=== PATIENT | male | born 1995 | race Two or more races ===

== ENCOUNTER 2019-04-05 12:52 | Emergency (ER) | payer OTHER ==
[2019-04-05 12:59] VITALS: RESP 18
--- NOTE | 2019-04-05 14:29 | ED ---
Abdominal Pain HPI - General Chief Complaint: Abdominal Pain Stated Complaint: hernia Time Seen by Provider: 04/05/19 13:29 Source: patient, RN notes reviewed Mode of arrival: ambulatory Limitations: no limitations - History of Present Illness Initial Comments: 23-year-old male presents emergency Department with chief complaint of left- sided groin pain. Patient states has been on and off it started improving but then it has worsened. Patient recent saw PCP who ordered an ultrasound. Patient states she is scheduled for this when he had increasing pain over the weekend working two jobs, patient states that he does a large amount of lifting twisting bending. He states is at really aggravate his symptoms. Patient had a leave work yesterday. Review of Systems ROS Statement: Those systems with pertinent positive or pertinent negative responses have been documented in the HPI. ROS Other: All systems not noted in ROS Statement are negative. Past Medical History Additional Past Medical History / Comment(s): hernia, seasonal allergies Past Surgical History: No Surgical Hx Reported Past Psychological History: No Psychological Hx Reported Smoking Status: Current every day smoker Past Alcohol Use History: Occasional Past Drug Use History: None Reported General Exam Limitations: no limitations General appearance: alert, in no apparent distress Head exam: Present: atraumatic, normocephalic, normal inspection Respiratory exam: Present: normal lung sounds bilaterally. Absent: respiratory distress, wheezes, rales, rhonchi, stridor Cardiovascular Exam: Present: regular rate (Patient was not tachycardic on exam), normal rhythm, normal heart sounds. Absent: systolic murmur, diastolic murmur, rubs, gallop, clicks GI/Abdominal exam: Present: soft, normal bowel sounds, hernia (Left inguinal). Absent: distended, tenderness, guarding, rebound, rigid exam: Present: normal inspection. Absent: testicular tenderness, urethral discharge, scrotal swelling Back exam: Absent: CVA tenderness (R), CVA tenderness (L) Course Vital Signs 04/05/19 12:57 Temperature 98.0 F Pulse Rate 113 H Respiratory 18 Rate Blood Pressure 106/72 O2 Sat by Pulse 98 Oximetry Medical Decision Making - Medical Decision Making 23-year-old male presented for left groin pain. Patient's had worsening symptoms which may be underlying small inguinal hernia versus enlarged lymph nodes. Patient will be referred to surgeon for further evaluation. Disposition Clinical Impression: Left groin pain Disposition: HOME SELF-CARE Condition: Stable Instructions (If sedation given, give patient instructions): Inguinal Hernia (ED) Additional Instructions: Please return to the Emergency Department if symptoms worsen or any other concerns. Is patient prescribed a controlled substance at d/c from ED?: No Referrals: Jose Enrique Tamayo MD [Primary Care Provider] - 1-2 days Manuel Soto MD [STAFF PHYSICIAN] - 1-2 days Time of Disposition: 14:51
--- NOTE | 2019-04-05 14:32 | US ---
EXAMINATION TYPE: US groin LT DATE OF EXAM: 04/05/2019 COMPARISON: NONE CLINICAL HISTORY: Pain, swelling. Pain left groin for 1 year, getting worse FINDINGS/TECHNIQUE: Targeted ultrasound was performed of the left groin in the area the patient's robert n. Grayscale and color imaging was performed. Within the left groin and area of concern there are multiple lymph nodes noted with largest measuring 1.5 x 1.1 x 0.5 cm. These appear morphologically normal and are within normal limits of size contain ing regular fatty emma without cortical thickening. No other solid or cystic mass is seen. No edema. IMPRESSION: Morphologically normal and nonenlarged left superficial inguinal lymph nodes.
[2019-04-05 15:15] VITALS: BP 134/64; PULSE 76; TEMP 98.4
== END 2019-04-05 15:14 | disposition home or self-care (01) ==
LOC: EC 12:52
DX: R10.30 Lower abdominal pain, unspecified (principal); F17.200 Nicotine dependence, unspecified, uncomplicated; Z87.19 Personal history of other diseases of the digestive system
CPT/HCPCS: 99283

== ENCOUNTER → 2019-04-08 | Outpatient (CLI) | payer OTHER ==
--- NOTE | 2019-04-09 11:22 | US ---
EXAMINATION TYPE: US scrotum with doppler. Grayscale and color Doppler Duplex imaging performed of t modesto scrotum. DATE OF EXAM: 04/08/2019 COMPARISON: NONE CLINICAL HISTORY: K40.90. Left groin and testicular pain x 1 year, worse x 2 weeks EXAM MEASUREMENTS: TESTICLES: Right Testicle: 3.9 x 2.7 x 2.2 cm Left Testicle: 3.9 x 2.7 x 2.3 cm EPIDIDYMIS HEAD: Right Epididymis: 1.1 x 1.0 x 0.9 cm Left Epididymis: 1.3 x 1.3 x 0.7 cm Doppler performed to assess for testicular vascularity; good bilateral color flow and waveforms are s een. There is no evidence of testicular torsion. Presence of hydroceles: anechoic area seen left measuring 1.5 x 1.2 x 0.5cm Presence of varicoceles: not seen IMPRESSION: 1. There is a 1.5 cm left hydrocele.
== END | disposition home or self-care (01) ==
LOC: RADUSMAIN 18:00
PROVIDERS: ATTEND Internal Medicine
DX: N43.3 Hydrocele, unspecified (principal)
CPT/HCPCS: 76870; 93975

== ENCOUNTER 2019-04-21 07:32 | Day surgery (SDC) | payer OTHER ==
[2019-04-16 11:53] VITALS: BMI 28.3
[~2019-04-21 07:32] MED LIST: HEPARIN SODIUM,PORCINE 5,000 UNIT/ML 1 ML VIAL SQ ONE
[2019-04-21] MEDS ORDERED: MIDAZOLAM 2 MG/2 ML VIAL IV PRN (07:48)
[2019-04-21] MEDS ORDERED: DEXAMETHASONE SOD PHOSPHATE 10 MG/ML 1 ML VIAL IV ONE (07:48)
[2019-04-21] MEDS ORDERED: ONDANSETRON 4 MG/2 ML VIAL IVP ONE (07:48)
[2019-04-21] MEDS ORDERED: SCOPOLAMINE 1.5MG/72HR PATCH TRANSDERM ONE (07:48)
[2019-04-21] MEDS: LIDOCAINE 1% 20 ML VIAL (10MG/ML) FOR IV START INTRADERMA PRN ×2 (07:59→08:00)
[2019-04-21] MEDS: LACTATED RINGERS 1,000 ML IV SCH (08:00)
--- NOTE | 2019-04-21 08:57 | P.GSHP ---
History of Present Illness H&P Date: 04/21/19 Chief Complaint: Left inguinal hernia, umbilical hernia This a 23 male who presents today for laparoscopic robotic of left inguinal hernia and umbilical hernia Past Medical History Additional Past Medical History / Comment(s): hernia, seasonal allergies History of Any Multi-Drug Resistant Organisms: None Reported Past Surgical History: No Surgical Hx Reported Additional Past Anesthesia/Blood Transfusion Reaction / Comment(s): no anesth. given in the past Past Psychological History: No Psychological Hx Reported Smoking Status: Current every day smoker Past Alcohol Use History: Occasional Past Drug Use History: None Reported - Past Family History Mother Family Medical History: No Reported History Medications and Allergies Home Medications Medication Instructions Recorded Confirmed Type No Known Home Medications 04/16/19 04/21/19 History Allergies Allergy/AdvReac Type Severity Reaction Status Date / Time No Known Allergies Allergy Verified 04/21/19 07:53 Surgical - Exam Vital Signs Temp Pulse Resp Pulse Ox 97.6 F 72 18 98 04/21/19 07:44 04/21/19 07:44 04/21/19 07:44 04/21/19 07:44 - General well developed, well nourished, no distress - Eyes PERRL - ENT normal pinna - Neck no masses - Respiratory normal expansion - Cardiovascular Rhythm: regular - Abdomen Abdomen: soft, non tender Hernia: inguinal (Left), umbilical Assessment and Plan Assessment: Umbilical hernia and left inguinal hernia. We'll perform laparoscopic robotic- assisted repair.
[2019-04-21] MEDS ORDERED: PROPOFOL 10 MG/ML 20 ML VIAL IV ONE (09:07)
[2019-04-21] MEDS ORDERED: LIDOCAINE 1% INJ 10MG/ML (20 ML MDV) ONE (09:07)
[2019-04-21] MEDS ORDERED: GLYCOPYRROLATE 0.2 MG/ML 2 ML VIAL ONE (09:07)
[2019-04-21] MEDS ORDERED: fentaNYL (PF) 50 MCG/ML 2 ML AMP ONE (09:07)
[2019-04-21] MEDS ORDERED: SUCCINYLCHOLINE CHLORIDE 100 MG/5 ML SYR IV ONE (09:07)
[2019-04-21] MEDS ORDERED: NEOSTIGMINE 1 MG/ML 10 ML VIAL ONE (09:07)
[2019-04-21] MEDS ORDERED: KETOROLAC 30 MG/ML 1 ML VIAL ONE (09:07)
[2019-04-21] MEDS ORDERED: MIDAZOLAM 2 MG/2 ML VIAL ONE (09:07)
[2019-04-21] MEDS ORDERED: ROCURONIUM BROMIDE 10 MG/ML 10 ML VIAL IV ONE (09:07)
[2019-04-21] MEDS ORDERED: KETAMINE 10 MG/ML 20 ML VIAL ONE (09:07)
[2019-04-21] MEDS ORDERED: BUPIVACAINE (PF) 0.5% 30 ML VIAL SQ ONE (09:39)
--- NOTE | 2019-04-21 10:22 | P.OP ---
Date of Procedure: 04/21/19 Preoperative Diagnosis: Left renal hernia Umbilical hernia Postoperative Diagnosis: Left inguinal hernia Umbilical hernia Procedure(s) Performed: Laparoscopic robotic-assisted repair of left inguinal hernia and umbilical hernia Anesthesia: ROBERTO Surgeon: Manuel Soto Estimated Blood Loss (ml): 5 Pathology: none sent Condition: stable Disposition: PACU Description of Procedure: The patient's placed on the operating table in the supine position. The patient received general anesthesia. The patient's abdomen was prepped and draped in usual sterile fashion. The skin was anesthetized 1% local Xylocaine at the incision sites. Using an 11 blade a skin incision was made at the umbilicus. The patient had a hernia at the umbilicus. The fascia was grasped with a Jellico and then the peritoneal cavity was entered with the Veress needle. Position of the Veress needle was confirmed with a positive drop test. After adequate insufflation a 5 mm trocar was placed into the peritoneal cavity. The Laparoscope was placed the peritoneal cavity. And a robotic 8 mm trocar was placed in the right lateral position and then another 8 mm robotic trochars placed in the left lateral position. The original 5 mm trocar was exchanged for a 12 mm trocar. The patient was placed in reverse Trendelenburg and then the patient was docked to the robot. Next the peritoneum over top of the left hernia was incised and then using blunt and sharp dissection and electrocautery the hernia sac was dissected free from the floor of the inguinal canal. The hernia sac was completely reduced into the peritoneal cavity. And then using the Pro cut press operator mesh the hernia was repaired. The peritoneum was then sutured with 20V lock suture. The patient was then undocked the robot. The needle was withdrawn from the peritoneal cavity. The umbilical hernia site was closed with 0 Ethibond suture. This was repaired laparoscopically with a Anjel Cartwright suture passer. The skin was closed interrupted 3-0 Monocryl suture. Dermabond dressing was applied. Patient was sent to recovery in stable condition.
[2019-04-21 10:27] VITALS: RESP 16; TEMP 96.9
[2019-04-21] MEDS: HYDROmorphone 0.5 MG/0.5 ML SYRINGE IVP PRN ×2 (10:37→10:48)
[2019-04-21 11:55] VITALS: BP 113/70; PULSE 80
[2019-04-21] MEDS ORDERED: HYDROcodone/APAP 5-325MG 1 EACH TAB PO ONE (11:57)
--- NOTE | 2019-04-22 11:24 | P.ANPRN ---
Procedure Note - Anesthesia - Nerve Block Performed Bilateral Rectus Abdominis Single Time Out Performed: Yes Date of Procedure: 04/22/19 Procedure Start Time: 08:36 Procedure Stop Time: 08:44 Location of Patient Procedure: PreOp Indication: Acute Post-Operative Pain, Requested by Surgeon Sedation Type: Sedate with meaningful contact maintained Preparation: Sterile Prep Position: Supine Needle Types: Pajunk Needle Gauge: 21 Ultrasound used to visualize needle placement: Yes Ultrasound used to observe medication spread: Yes Blood Aspirated: No Pain Paresthesia on Injection Noted: No Resistance on Injection: Normal Image Stored and Saved: Yes Events: Uneventful and Well Tolerated (ropi .5% 15cc each side)
== END 2019-04-21 12:29 | disposition home or self-care (01) ==
LOC: OR 07:32
PROVIDERS: ATTEND Surgery
DX: K40.90 Unilateral inguinal hernia, without obstruction or gangrene, not specified as recurrent (principal); K42.9 Umbilical hernia without obstruction or gangrene; F17.210 Nicotine dependence, cigarettes, uncomplicated; J30.2 Other seasonal allergic rhinitis
CPT/HCPCS: 49650; 64488; C1781; J2250; J1644; J1100; J2710; J0690; J2405; J2001; J3010; J1885; J0330; J2704; J1170

== ENCOUNTER 2025-02-02 06:33 | Day surgery (SDC) | payer OTHER ==
[~2025-02-02 06:33] MED LIST changes: -HEPARIN SODIUM,PORCINE 5,000 UNIT/ML 1 ML VIAL SQ ONE; +LIDOCAINE 1% (10MG/ML) FOR IV START INTRADERMA PRN
[2025-02-02 06:59] VITALS: TEMP 97.5
[2025-02-02] MEDS: IV FLUID CONTINUATION 1,000 ML IV ONE (07:09)
[2025-02-02] MEDS: LACTATED RINGERS 1,000 ML IV SCH (07:10)
[2025-02-02] MEDS ORDERED: PROPOFOL 10 MG/ML 20 ML VIAL IV ONE (08:25)
[2025-02-02] MEDS ORDERED: LIDOCAINE 2% (PF) 20 MG/ML 5 ML VIAL ONE (08:25)
--- NOTE | 2025-02-02 08:41 | P.PCN ---
Date of Procedure: 02/02/25 Procedure(s) Performed: . Brief history: Patient is a pleasant 29-year-old white male scheduled for an elective upper endoscopy as well as colonoscopy as a part of evaluation of GERD/epigastric pain/intermittent rectal bleeding Procedure performed: Esophagogastroduodenoscopy with biopsy Colonoscopy Preoperative diagnosis: GERD/Epigastric pain Intermittent rectal bleeding Anesthesia: [facility] [place] Procedure: After informed consent was obtained from the patient was brought into the endoscopy unit and IV sedation was administered by anesthesia under continuous monitoring. Initially upper endoscopy was done. The Olympus GF 160 video endoscope was inserted inserted into the mouth and esophagus intubated without any difficulty and was gradually advanced into the stomach and duodenum and carefully examined. The bulb and second part of the duodenum appeared normal. The scope was then withdrawn into the stomach adequately insufflated with air and upon careful examination the antrum had mild gastritis and biopsies were done from this area. Mucosa body, cardia and fundus appeared normal. The scope was then withdrawn into the esophagus. The GE junction was located at 40 cm to the incisors. It appeared regular with no erythema erosions or ulcerations. Rest of the esophagus appeared normal. Patient tolerated the procedure well. At this time the patient continued to remain sedation. Initial digital rectal examination was normal. Olympus CF 160 video colonoscope was then inserted into the rectum and gradually advanced to the cecum without any difficulty. Careful examination was performed as the scope was gradually being withdrawn. The prep was excellent. The cecum, ascending colon, transverse colon, descending colon, sigmoid colon and rectum appeared normal. Retroflexion was performed in the rectum and no lesions were noted. Patient tolerated the procedure well. Impression: 1. Upper endoscopy revealed mild antral gastritis but no active esophagitis or peptic ulcer disease 2. Colonoscopy was within normal limits with no evidence of colorectal neoplasia Recommendations: Findings of this examination were discussed with the patient as well as his family. He was advised to follow-up with the biopsy results. Recommended trial of Pepcid 20 mg twice daily and was briefly educated about antireflux measures. Follow-up in the office if he has persistent epigastric pain. Continue with a high-fiber diet and fiber supplements on a regular basis and avoid straining and constipation.
[2025-02-02 08:47] VITALS: RESP 14
[2025-02-02 09:00] VITALS: BP 95/71; PULSE 78
== END 2025-02-02 09:21 ==
LOC: ORWHC2ENDO 06:33
PROVIDERS: ATTEND Internal Medicine Gastroenterology
DX: K62.5 Hemorrhage of anus and rectum (principal); K29.50 Unspecified chronic gastritis without bleeding; K21.9 Gastro-esophageal reflux disease without esophagitis; F90.9 Attention-deficit hyperactivity disorder, unspecified type; F41.9 Anxiety disorder, unspecified; J30.2 Other seasonal allergic rhinitis; Z79.899 Other long term (current) drug therapy
CPT/HCPCS: 88305; 45378; 43239; J2704; J2003